=== PATIENT | male | born 1960 | race Native Hawaiian/Other Pacific Islander ===

== ENCOUNTER 2016-09-10 08:40 | Outpatient (CLI) | payer MEDICAID | END 2016-09-10 08:41 | disposition home or self-care (01) | DX: I10 Essential (primary) hypertension (principal); E78.5 Hyperlipidemia, unspecified; E11.9 Type 2 diabetes mellitus without complications; Z12.11 Encounter for screening for malignant neoplasm of colon ==

== ENCOUNTER 2017-04-06 11:28 | Emergency (ER) | payer OTHER, MEDICAID ==
[2017-04-06 11:35] VITALS: BP 128/79
--- NOTE | 2017-04-06 11:59 | ED Physician Documentation ---
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 Pain with walking and leg flexion at knee.) Where injury occurred: Work Timing - onset: Today Timing - duration: Hours Timing - details: Abrupt onset, Still present Improved by: Rest Worsened by: Moving, Palpating, Other (walking) Associated symptoms: No: Weakness, Numbness, Swelling Similar symptoms before: Has not had sx before Recently seen: Not recently seen Review of Systems Skin: denies: Abrasion (s), Laceration (s) Neurologic: denies: Focal weakness, Numbness PD PAST MEDICAL HISTORY - Past Medical History Cardiovascular: Hypertension, High cholesterol Endocrine/Autoimmune: Type 2 diabetes - Past Surgical History Past Surgical History: Yes - Present Medications Home Medications: Ambulatory Orders Medication Instructions Recorded Confirmed Atenolol [Tenormin] 25 mg PO DAILY 11/08/12 04/06/17 Simvastatin 40 mg PO DAILY #30 tablet 11/08/12 04/06/17 metFORMIN [Glucophage] 0 mg ORAL DAILY 01/21/15 04/06/17 Aspirin 81 mg PO DAILY 02/25/16 04/06/17 HYDROcod/ACETAM 5/325 [[place] 5/325] 1 tab PO Q6H PRN #15 tablet 04/06/17 Methocarbamol [Robaxin] 500 mg PO Q6H PRN #25 tablet 04/06/17 Naproxen [Naprosyn] 500 mg PO BID #20 tablet 04/06/17 - Allergies Allergies/Adverse Reactions: Allergies Allergy/AdvReac Type Severity Reaction Status Date / Time No Known Drug Allergies Allergy Verified 04/06/17 11:35 - Social History Does the pt smoke?: No Smoking Status: Never smoker Does the pt drink ETOH?: No Does the pt have substance abuse?: No - Immunizations Immunizations are current?: Yes PD ED PE NORMAL - Vitals Vital signs reviewed: Yes - General General: Alert and oriented X 3, No acute distress, Well developed/nourished - Derm Derm: Normal color, Warm and dry - Extremities Extremities: Other (right posterior medial thigh above the level of the hamstring tendon itself, is tender in biceps femoris area. No soft spots of muscle. He is able to flex against resistance but hurts in posterior medial thigh. ) - Neuro Neuro: Alert and oriented X 3, No motor deficit, No sensory deficit Results - Vitals Vitals: Vital Signs - 24 hr 04/06/17 11:30 Temperature 35.9 C L Heart Rate 79 Respiratory 16 Rate Blood Pressure 128/79 O2 Saturation 99 Oxygen O2 Source Room air PD MEDICAL DECISION MAKING - ED course Complexity details: considered differential (has muscle pain and limping with tenderness medial posterior thigh, but higher than tendon segment. Seems in Biceps femoris region. Hamstring tendon at popliteal area firm and not tender. ) , d/w patient Departure - Departure Disposition: 01 Home, Self Care Clinical Impression: Hamstring muscle strain Qualifiers: Encounter type: initial encounter Laterality: right Qualified Code(s): S76.311A - Strain of muscle, fascia and tendon of the posterior muscle group at thigh level, right thigh, initial encounter Pain in extremity Qualifiers: Extremity pain location: thigh Laterality: right Qualified Code(s): M79.651 - Pain in right thigh Condition: Stable Record reviewed to determine appropriate education?: Yes Instructions: ED Strain Muscle Ext Follow-Up: Laura Jacobo ARNP [Primary Care Provider] - Emilie Rubio MD [Provider Admit Priv/Credential] - Prescriptions: HYDROcod/ACETAM 5/325 [[place] 5/325] 1 tab PO Q6H PRN #15 tablet PRN Reason: Pain Methocarbamol [Robaxin] 500 mg PO Q6H PRN #25 tablet PRN Reason: Spasms Naproxen [Naprosyn] 500 mg PO BID #20 tablet Comments: Limited walking and standing and work for several days up to a week. Over this will improve during that timeframe though it will possibly take 2 or 3 weeks to fully heal up. Use crutches if needed for partial weightbearing for comfort. Use an anti-inflammatory such as naproxen or ibuprofen twice daily for the next 7-10 days. Methocarbamol muscle relaxant if needed for spasms and stiffness. Add Tylenol or hydrocodone if needed for pain. Follow-up with your primary care or perhaps more appropriately orthopedics if not improved reasonably well in the next week. Forms: Activity restrictions Discharge Date/Time: 04/06/17 12:57
[2017-04-06] MEDS ORDERED: METHOCARBAMOL 500 MG TABLET PO STA (12:34)
[2017-04-06] MEDS ORDERED: IBUPROFEN 600 MG TABLET PO STA (12:34)
[2017-04-06] MEDS ORDERED: HYDROcod/ACETAM 5/325 MG TABLET PO STA (12:34)
[2017-04-06] MEDS ORDERED: IBUPROFEN 600 MG TABLET PO ONE (12:46)
[2017-04-06] MEDS ORDERED: HYDROcod/ACETAM 5/325 MG TABLET ONE (12:46)
[2017-04-06] MEDS ORDERED: METHOCARBAMOL 500 MG TABLET PO ONE (12:47)
== END 2017-04-06 12:57 | disposition home or self-care (01) ==
LOC: ED 11:28
DX: S76.311A Strain of muscle, fascia and tendon of the posterior muscle group at thigh level, right thigh, initial encounter (principal); X50.9XXA Other and unspecified overexertion or strenuous movements or postures, initial encounter; Y99.0 Civilian activity done for income or pay; M79.651 Pain in right thigh; I10 Essential (primary) hypertension; E11.8 Type 2 diabetes mellitus with unspecified complications; E78.00 Pure hypercholesterolemia, unspecified; Z79.84 Long term (current) use of oral hypoglycemic drugs; Z79.82 Long term (current) use of aspirin
CPT/HCPCS: 1040M; 99283; A9270

== ENCOUNTER 2017-04-08 13:03 | Emergency (ER) | payer MEDICAID ==
[2017-04-08 13:23] VITALS: BP 158/83
--- NOTE | 2017-04-08 14:45 | ED Physician Documentation ---
PD HPI LOWER EXT INJURY - Stated complaint Stated Complaint: R LEG PX - Chief complaint Chief Complaint: General - History obtained from History obtained from: Patient - History of Present Illness PD HPI LOW EXT INJURY LOCATION: Right, Thigh Type of injury: Twist (see prior ED chart) Where injury occurred: Work Timing - details: Abrupt onset Recently seen: Emergency Dept (he had hamstring injury few days ago and is improving pain with walking but noted significant bruising posterolateral thigh today. I had warned him about that at prior visit but he did not recall that and was cocnerned about the bruising.) Review of Systems Constitutional: denies: Fever, Chills GI: denies: Nausea, Vomiting Skin: denies: Abrasion (s), Laceration (s) Neurologic: denies: Focal weakness, Numbness PD PAST MEDICAL HISTORY - Past Medical History Cardiovascular: Hypertension, High cholesterol Endocrine/Autoimmune: Type 2 diabetes - Past Surgical History Past Surgical History: Yes - Present Medications Home Medications: Ambulatory Orders Medication Instructions Recorded Confirmed Atenolol [Tenormin] 25 mg PO DAILY 11/08/12 04/08/17 metFORMIN [Glucophage] 0 mg ORAL DAILY 01/21/15 04/08/17 Aspirin 81 mg PO DAILY 02/25/16 04/08/17 HYDROcod/ACETAM 5/325 [[place] 5/325] 1 tab PO Q6H PRN #15 tablet 04/06/17 Methocarbamol [Robaxin] 500 mg PO Q6H PRN #25 tablet 04/06/17 04/08/17 - Allergies Allergies/Adverse Reactions: Allergies Allergy/AdvReac Type Severity Reaction Status Date / Time No Known Drug Allergies Allergy Verified 04/08/17 13:23 - Social History Does the pt smoke?: No Smoking Status: Never smoker Does the pt drink ETOH?: No Does the pt have substance abuse?: No - Immunizations Immunizations are current?: Yes PD ED PE NORMAL - Vitals Vital signs reviewed: Yes - General General: Alert and oriented X 3, No acute distress, Well developed/nourished - Derm Derm: Warm and dry, Other (right posterolateral thigh with bruising deep purple , without tenderness of the bruise area. tub tender in muscle injury area. ) - Neuro Neuro: Alert and oriented X 3, No motor deficit, No sensory deficit Results - Vitals Vitals: Oxygen O2 Source Room air PD MEDICAL DECISION MAKING - ED course Complexity details: considered differential (he had had muscle strain of hamstring few days prior and now has bruising. This is just blood coming to surface. ), d/w patient Departure - Departure Disposition: 01 Home, Self Care Clinical Impression: Hamstring muscle strain Qualifiers: Encounter type: subsequent encounter Laterality: right Qualified Code(s): S76.311D - Strain of muscle, fascia and tendon of the posterior muscle group at thigh level, right thigh, subsequent encounter Traumatic ecchymosis of right thigh Qualifiers: Encounter type: subsequent encounter Qualified Code(s): S70.11XD - Contusion of right thigh, subsequent encounter Condition: Stable Record reviewed to determine appropriate education?: Yes Comments: The bruising of the back of the thigh is natural consequence of the torn muscle from the hamstring area. It is blood just coming to the surface with time. He may also develop some down behind the knee and the top of the calf as the blood tracks down the tendon sheath. It will be a bit tender and sore in the area but it is would slowly resolve over a couple weeks. I will turn from the purple to green to yellow and slowly fade away. Otherwise from the muscle tear itself, continue light activity as previously directed and progress that as able based on symptoms. Discharge Date/Time: 04/08/17 14:49
== END 2017-04-08 14:49 | disposition home or self-care (01) ==
LOC: ED 13:03
DX: S76.311D Strain of muscle, fascia and tendon of the posterior muscle group at thigh level, right thigh, subsequent encounter (principal); S70.11XD Contusion of right thigh, subsequent encounter; X50.9XXD Other and unspecified overexertion or strenuous movements or postures, subsequent encounter; I10 Essential (primary) hypertension; E78.00 Pure hypercholesterolemia, unspecified; E11.8 Type 2 diabetes mellitus with unspecified complications; Z79.84 Long term (current) use of oral hypoglycemic drugs; Z79.82 Long term (current) use of aspirin
CPT/HCPCS: 99282

== ENCOUNTER 2017-05-29 07:57 | Outpatient (CLI) | payer MEDICAID ==
[2017-05-29 08:41] LABS: CREATININE 1.6 mg/dL (0.6-1.2)
[2017-05-29 08:52] LABS: HB2 TOTAL 16.3 g/dL; HEMOGLOBIN A1C 0.76 g/dL; HEMOGLOBIN A1C % 6.4 % (4.6-6.2)
== END 2017-05-29 07:58 | disposition home or self-care (01) ==
LOC: LAB 07:57
PROVIDERS: ATTEND Nurse Practitioner Family
DX: E11.9 Type 2 diabetes mellitus without complications (principal)
CPT/HCPCS: 80048; 83036

== ENCOUNTER 2018-05-15 06:31 | Outpatient (CLI) | payer MEDICAID ==
[2018-05-15 07:03] LABS: BASOPHILS # (AUTO) 0.1 10^3/uL (0.0-0.1); BASOPHILS % (AUTO) 0.9 %; EOSINOPHILS # (AUTO) 0.2 10^3/uL (0.0-0.7); EOSINOPHILS % (AUTO) 3.6 %; HGB - HEMOGLOBIN 14.9 g/dL (14.0-18.0); LYMPHOCYTES # (AUTO) 1.7 10^3/uL (1.5-3.5); LYMPHOCYTES % (AUTO) 28.2 %; MEAN CORPUSCULAR HEMOGLOBIN 30.7 pg (27.0-31.0); MEAN CORPUSCULAR HGB CONC 33.7 g/dL (32.0-36.0); MEAN CORPUSCULAR VOLUME 91.2 fL (80.0-94.0); MONOCYTES # (AUTO) 0.5 10^3/uL (0.0-1.0); MONOCYTES % (AUTO) 8.3 %; NEUTROPHILS # (AUTO) 3.6 10^3/uL (1.5-6.6); PLT - PLATELET COUNT 338 10^3/uL (130-450); RED BLOOD COUNT 4.87 10^6/uL (4.70-6.10); RED CELL DISTRIBUTION WIDTH 13.3 % (12.0-15.0); WHITE BLOOD COUNT 6.1 x10^3/uL (4.8-10.8)
[2018-05-15 07:09] LABS: ALBUMIN 4.3 g/dL (3.2-5.5); ALBUMIN/GLOBULIN RATIO 1.3 (1.0-2.2); ALKALINE PHOSPHATASE 78 IU/L (42-121); ALT ALANINE AMINOTRANSFERASE 25 IU/L (10-60); AST ASPARTATE AMINOTRANSFERASE 23 IU/L (10-42); BILIRUBIN,TOTAL 0.5 mg/dL (0.2-1.0); BUN - BLOOD UREA NITROGEN 33 mg/dL (6-20); CALCIUM 8.7 mg/dL (8.5-10.3); CARBON DIOXIDE - CO2 23 mmol/L (21-32); CHLORIDE 108 mmol/L (101-111); CHOL/HDL RATIO 7.1 (<5.0); CHOLESTEROL 248 mg/dL; CREATININE 1.7 mg/dL (0.6-1.2); GFR - MDRD 42 (>89); GLUCOSE 207 mg/dL (70-100); HDL CHOLESTEROL 35 mg/dL; SODIUM 138 mmol/L (135-145); TOTAL PROTEIN 7.7 g/dL (6.7-8.2)
[2018-05-15 07:27] LABS: LDL CHOLESTEROL,DIRECT 117 mg/dL; LDLD/HDL RATIO 3.3 (<3.6)
[2018-05-15 07:33] LABS: HB2 TOTAL 16.1 g/dL; HEMOGLOBIN A1C 0.79 g/dL; HEMOGLOBIN A1C % 6.6 % (4.6-6.2)
== END 2018-05-15 06:32 | disposition home or self-care (01) ==
LOC: LAB 06:31
PROVIDERS: ATTEND Nurse Practitioner Family
DX: I10 Essential (primary) hypertension (principal); E11.9 Type 2 diabetes mellitus without complications; E78.5 Hyperlipidemia, unspecified
CPT/HCPCS: 36415; 80050; 80061; 82043; 83036; 83721

== ENCOUNTER 2018-10-16 10:01 | Emergency (ER) | payer MEDICAID ==
[2018-10-16] MEDS ORDERED: cefTRIAXone 1 GM VIAL IM STA (11:27)
[2018-10-16] MEDS ORDERED: LIDOCAINE 1% 2 ML VIAL MC ONE (11:27)
--- NOTE | 2018-10-16 11:31 | ED Physician Documentation ---
History of Present Illness - Stated complaint Stated Complaint: L HAND INJ - Chief complaint Chief Complaint: General - History obtained from History obtained from: Patient - History of Present Illness Timing: How many days ago (3) - Additonal information Additional information: 57-year-old diabetic male carrying some firewood into his house on Tuesday night and later noticed that he had some swelling to his left middle finger. He also noticed there was 2 other bite morales to the right middle finger and the left thumb. He thought these would improve and the bites on his right hand resolved with only tiny eschars left and on the left hand he is developed swelling redness and a lymphangitic streak. He has not had fever he has not had nausea or vomiting. Review of Systems Constitutional: denies: Fever Eyes: denies: Decreased vision Ears: denies: Ear pain Nose: denies: Rhinorrhea / runny nose, Congestion Throat: denies: Sore throat Cardiac: denies: Chest pain / pressure Respiratory: denies: Dyspnea, Cough GI: denies: Nausea, Vomiting PD PAST MEDICAL HISTORY - Past Medical History Past Medical History: Yes Cardiovascular: Hypertension, High cholesterol Endocrine/Autoimmune: Type 2 diabetes - Past Surgical History Past Surgical History: Yes - Present Medications Home Medications: Ambulatory Orders Medication Instructions Recorded Confirmed Atenolol [Tenormin] 25 mg PO DAILY 11/08/12 04/08/17 metFORMIN [Glucophage] 0 mg ORAL DAILY 01/21/15 04/08/17 Aspirin 81 mg PO DAILY 02/25/16 04/08/17 HYDROcod/ACETAM 5/325 [[place] 5/325] 1 tab PO Q6H PRN #15 tablet 04/06/17 Methocarbamol [Robaxin] 500 mg PO Q6H PRN #25 tablet 04/06/17 04/08/17 Sulfamethoxazole/Trimethoprim 1 each PO BID #14 tablet 10/16/18 [Sulfamethoxazole-Tmp Ds Tablet] - Allergies Allergies/Adverse Reactions: Allergies Allergy/AdvReac Type Severity Reaction Status Date / Time No Known Drug Allergies Allergy Verified 10/16/18 10:08 - Social History Does the pt smoke?: No Smoking Status: Never smoker Does the pt drink ETOH?: No Does the pt have substance abuse?: No - Immunizations Immunizations are current?: Yes - POLST Patient has POLST: No PD ED PE NORMAL - Vitals Vital signs reviewed: Yes (hypertensive ) - General General: Alert and oriented X 3, No acute distress, Well developed/nourished - HEENT HEENT: Atraumatic, PERRL - Neck Neck: Supple, no meningeal sign, No bony TTP - Respiratory Respiratory: No respiratory distress - Derm Derm: Normal color, Warm and dry, No rash - Extremities Extremities: No deformity, Other (There are 2 small areas 3mm round over the right middle finger proximally and the right thumb ulnar surface. There is a similar markt to the left middle finger but there is marked swelling and erythema to the left middle finger with lymphangitic streaking over the dorsum of the left hand extending to the distal forearm. The finger is soft and without fluctuance or pointing ) - Neuro Neuro: Alert and oriented X 3, sample checker 2-12 intact, No motor deficit, No sensory deficit, Normal speech Eye Opening: Spontaneous Motor: Obeys Commands Verbal: Oriented GCS Score: 15 - Psych Psych: Normal mood, Normal affect Results - Vitals Vitals: Vital Signs - 24 hr 10/16/18 10:03 Temperature 36.5 C Heart Rate 85 Respiratory 14 Rate Blood Pressure 166/105 H O2 Saturation 100 Oxygen O2 Source Room air PD MEDICAL DECISION MAKING - ED course Complexity details: considered differential, d/w patient ED course: 57-year-old male diabetic has developed a swelling to the left middle finger with lymphangitic streaking without obvious focal abscess. He is administered Rocephin 1 g IM and we will place him on some Sept. I have discussed with the patient reason to return to the emergency department specifically for pointing, pain or progression. Departure - Departure Disposition: 01 Home, Self Care Clinical Impression: Cellulitis and abscess of finger, unspecified Condition: Stable Instructions: ED Infec Skin Cellulitis Follow-Up: [facility] [Provider Group] Prescriptions: Sulfamethoxazole/Trimethoprim [Sulfamethoxazole-Tmp Ds Tablet] 1 each PO BID #14 tablet
[2018-10-16 12:18] VITALS: BP 155/98
== END 2018-10-16 12:18 | disposition home or self-care (01) ==
LOC: ED 10:01
DX: L03.012 Cellulitis of left finger (principal); L02.512 Cutaneous abscess of left hand; E11.9 Type 2 diabetes mellitus without complications; Z79.84 Long term (current) use of oral hypoglycemic drugs; I10 Essential (primary) hypertension; Z79.82 Long term (current) use of aspirin
CPT/HCPCS: 96372; 99283

== ENCOUNTER 2020-10-31 06:57 | Outpatient (CLI) | payer MEDICAID ==
[2020-10-31 07:31] LABS: BASOPHILS # (AUTO) 0.1 10^3/uL (0.0-0.1); BASOPHILS % (AUTO) 0.8 %; EOSINOPHILS # (AUTO) 0.2 10^3/uL (0.0-0.7); EOSINOPHILS % (AUTO) 3.4 %; HCT - HEMATOCRIT 42.5 % (42.0-52.0); HGB - HEMOGLOBIN 14.3 g/dL (14.0-18.0); LYMPHOCYTES # (AUTO) 1.8 10^3/uL (1.5-3.5); MEAN CORPUSCULAR HEMOGLOBIN 30.9 pg (27.0-31.0); MEAN CORPUSCULAR HGB CONC 33.6 g/dL (32.0-36.0); MEAN CORPUSCULAR VOLUME 91.8 fL (80.0-94.0); MEAN PLATELET VOLUME 8.7 fL (7.4-11.4); MONOCYTES # (AUTO) 0.4 10^3/uL (0.0-1.0); MONOCYTES % (AUTO) 6.9 %; NEUTROPHILS # (AUTO) 3.5 10^3/uL (1.5-6.6); NEUTROPHILS % (AUTO) 58.6 %; PLT - PLATELET COUNT 316 10^3/uL (130-450); RED BLOOD COUNT 4.63 10^6/uL (4.70-6.10); RED CELL DISTRIBUTION WIDTH 12.5 % (12.0-15.0)
[2020-10-31 07:48] LABS: BUN - BLOOD UREA NITROGEN 30 mg/dL (6-20); CARBON DIOXIDE - CO2 22 mmol/L (21-32); CHLORIDE 109 mmol/L (101-111); CHOL/HDL RATIO 5.7 (<5.0); CHOLESTEROL 221 mg/dL; GFR - MDRD 34 (>89); GLUCOSE 199 mg/dL (70-100); HDL CHOLESTEROL 39 mg/dL; LDL CHOLESTEROL,CALCULATED 144 mg/dL; LDL/HDL RATIO 3.7 (<3.6); POTASSIUM 4.2 mmol/L (3.5-5.0); SODIUM 138 mmol/L (135-145); TRIGLYCERIDES 192 mg/dL; VLDL CHOLESTEROL 38 mg/dL
[2020-10-31 08:01] LABS: THYROID STIMULATING HORMONE 3.87 uIU/mL (0.34-5.60)
[2020-10-31 08:18] LABS: CREATININE,URINE 124.5 mg/dL; MICROALBUM/CREATININE RATIO,UR 773.5 ug/mg (<30.0); MICROALBUMIN,URINE 96.3 mg/dL (0-300.0)
[2020-10-31 12:01] LABS: ESTIMATED AVERAGE GLUCOSE 163 mg/dL (70-100); HEMOGLOBIN A1c% 7.3 % (4.27-6.07)
== END 2020-10-31 06:58 | disposition home or self-care (01) ==
LOC: LAB 06:57
PROVIDERS: ATTEND Physician Assistant
DX: E78.5 Hyperlipidemia, unspecified (principal); I10 Essential (primary) hypertension; E11.9 Type 2 diabetes mellitus without complications; Z12.5 Encounter for screening for malignant neoplasm of prostate
CPT/HCPCS: 36415; 80048; 80061; 82043; 82570; 83036; 83721; 84153; 84443; 85025

== ENCOUNTER 2021-09-25 16:49 | Outpatient (CLI) | payer MEDICAID ==
[2021-09-25 17:07] LABS: BASOPHILS # (AUTO) 0.1 10^3/uL (0.0-0.1); BASOPHILS % (AUTO) 0.6 %; EOSINOPHILS # (AUTO) 0.2 10^3/uL (0.0-0.7); EOSINOPHILS % (AUTO) 2.1 %; HCT - HEMATOCRIT 40.6 % (42.0-52.0); HGB - HEMOGLOBIN 13.1 g/dL (14.0-18.0); LYMPHOCYTES # (AUTO) 1.9 10^3/uL (1.5-3.5); LYMPHOCYTES % (AUTO) 20.4 %; MEAN CORPUSCULAR HEMOGLOBIN 30.3 pg (27.0-31.0); MEAN CORPUSCULAR HGB CONC 32.3 g/dL (32.0-36.0); MEAN CORPUSCULAR VOLUME 93.8 fL (80.0-94.0); MEAN PLATELET VOLUME 8.3 fL (7.4-11.4); MONOCYTES # (AUTO) 0.8 10^3/uL (0.0-1.0); MONOCYTES % (AUTO) 8.4 %; NEUTROPHILS # (AUTO) 6.5 10^3/uL (1.5-6.6); NEUTROPHILS % (AUTO) 68.2 %; PLT - PLATELET COUNT 318 10^3/uL (130-450); RED BLOOD COUNT 4.33 10^6/uL (4.70-6.10); WHITE BLOOD COUNT 9.5 x10^3/uL (4.8-10.8)
[2021-09-25 17:20] LABS: ALBUMIN 4.2 g/dL (3.2-5.5); CALCIUM 8.9 mg/dL (8.5-10.3); CREATININE 2.7 mg/dL (0.6-1.2); PHOSPHORUS 4.2 mg/dL (2.5-4.6); POTASSIUM 4.6 mmol/L (3.5-5.0)
[2021-09-25 17:35] LABS: BILIRUBIN,URINE NEGATIVE (NEGATIVE); GLUCOSE, URINE (UA) NEGATIVE (NEGATIVE); KETONES,URINE (UA) NEGATIVE (NEGATIVE); LEUKOCYTE ESTERASE, URINE NEGATIVE (NEGATIVE); NITRITE,URINE NEGATIVE (NEGATIVE); OCCULT BLOOD,URINE TRACE-INTA (NEGATIVE); PH,URINE 5.5 PH (5.0-7.5); PROTEIN,URINE 100 mg/dL (NEGATIVE); UROBILINOGEN,URINE 0.2 (NORMAL) E.U./dL (NORMAL)
[2021-09-25 17:36] LABS: CLARITY,URINE HAZY (CLEAR)
[2021-09-25 17:56] LABS: BACTERIA,URINE None Seen /HPF (None Seen); RBC,URINE 0-5 /HPF (0-5); SQUAMOUS EPITHELIAL CELL,UR NONE SEEN (<= Few); WBC,URINE 0-3 /HPF (0-3)
[2021-09-25 17:59] LABS: CREATININE,URINE 158.3 mg/dL; MICROALBUM/CREATININE RATIO,UR 471.9 ug/mg (<30.0); MICROALBUMIN,URINE 74.7 mg/dL (0-300.0); PROTEIN/CREATININE RATIO,URINE 0.6 (<=0.2)
== END 2021-09-25 16:50 | disposition home or self-care (01) ==
LOC: LAB 16:49
PROVIDERS: ATTEND Internal Medicine Nephrology
DX: N18.32 Chronic kidney disease, stage 3b (principal); R80.9 Proteinuria, unspecified
CPT/HCPCS: 36415; 80069; 81001; 82043; 82570; 84156; 85025; 87086

== ENCOUNTER 2021-10-24 08:38 | Outpatient (CLI) | payer MEDICAID ==
[2021-10-24 08:58] LABS: HCT - HEMATOCRIT 43.4 % (42.0-52.0); HGB - HEMOGLOBIN 14.2 g/dL (14.0-18.0)
[2021-10-24 09:03] LABS: BILIRUBIN,URINE NEGATIVE (NEGATIVE); GLUCOSE, URINE (UA) 100 mg/dL (NEGATIVE); KETONES,URINE (UA) NEGATIVE (NEGATIVE); LEUKOCYTE ESTERASE, URINE NEGATIVE (NEGATIVE); NITRITE,URINE NEGATIVE (NEGATIVE); OCCULT BLOOD,URINE TRACE-INTA (NEGATIVE); PROTEIN,URINE 100 mg/dL (NEGATIVE); UROBILINOGEN,URINE 0.2 (NORMAL) E.U./dL (NORMAL)
[2021-10-24 09:11] LABS: ALBUMIN 4.1 g/dL (3.2-5.5); CALCIUM 9.3 mg/dL (8.5-10.3); PHOSPHORUS 3.2 mg/dL (2.5-4.6); POTASSIUM 4.6 mmol/L (3.5-5.0)
[2021-10-24 09:12] LABS: CLARITY,URINE CLEAR (CLEAR); RBC,URINE 0-5 /HPF (0-5); WBC,URINE 0-3 /HPF (0-3)
[2021-10-24 09:13] LABS: BACTERIA,URINE None Seen /HPF (None Seen); SQUAMOUS EPITHELIAL CELL,UR NONE SEEN (<= Few)
[2021-10-24 09:16] LABS: CREATININE,URINE 91.1 mg/dL; MICROALBUM/CREATININE RATIO,UR 354.6 ug/mg (<30.0); MICROALBUMIN,URINE 32.3 mg/dL (0-300.0); PROTEIN/CREATININE RATIO,URINE 1.1 (<=0.2)
== END 2021-10-24 08:39 | disposition home or self-care (01) ==
LOC: LAB 08:38
PROVIDERS: ATTEND Internal Medicine Nephrology
DX: E11.22 Type 2 diabetes mellitus with diabetic chronic kidney disease (principal); N18.4 Chronic kidney disease, stage 4 (severe); R80.9 Proteinuria, unspecified
CPT/HCPCS: 36415; 80069; 81001; 82043; 82306; 82570; 83970; 84156; 85014; 85018; 87086

== ENCOUNTER 2022-01-16 08:18 | Outpatient (CLI) | payer MEDICAID ==
[2022-01-16 09:02] LABS: HCT - HEMATOCRIT 39.1 % (42.0-52.0); HGB - HEMOGLOBIN 12.7 g/dL (14.0-18.0)
[2022-01-16 09:12] LABS: CALCIUM 9.3 mg/dL (8.5-10.3); CREATININE 2.2 mg/dL (0.6-1.2); POTASSIUM 5.3 mmol/L (3.5-5.0)
[2022-01-16 09:49] LABS: CREATININE,URINE 110.5 mg/dL; MICROALBUM/CREATININE RATIO,UR 385.5 ug/mg (<30.0); MICROALBUMIN,URINE 42.6 mg/dL (0-300.0)
[2022-01-16 10:34] LABS: ESTIMATED AVERAGE GLUCOSE 146 mg/dL (70-100); HEMOGLOBIN A1c% 6.7 % (4.27-6.07)
== END 2022-01-16 08:19 | disposition home or self-care (01) ==
LOC: LAB 08:18
PROVIDERS: ATTEND Internal Medicine Nephrology
DX: I12.9 Hypertensive chronic kidney disease with stage 1 through stage 4 chronic kidney disease, or unspecified chronic kidney disease (principal); E11.22 Type 2 diabetes mellitus with diabetic chronic kidney disease; N18.4 Chronic kidney disease, stage 4 (severe); R80.9 Proteinuria, unspecified
CPT/HCPCS: 36415; 80048; 82043; 82570; 83036; 85014; 85018

== ENCOUNTER 2022-07-23 09:39 | Outpatient (CLI) | payer MEDICAID ==
[2022-07-23 09:58] LABS: BASOPHILS # (AUTO) 0.1 10^3/uL (0.0-0.1); BASOPHILS % (AUTO) 0.7 %; EOSINOPHILS # (AUTO) 0.2 10^3/uL (0.0-0.7); EOSINOPHILS % (AUTO) 2.6 %; HCT - HEMATOCRIT 40.3 % (42.0-52.0); HGB - HEMOGLOBIN 12.4 g/dL (14.0-18.0); LYMPHOCYTES # (AUTO) 1.1 10^3/uL (1.5-3.5); LYMPHOCYTES % (AUTO) 12.9 %; MEAN CORPUSCULAR HEMOGLOBIN 29.7 pg (27.0-31.0); MEAN CORPUSCULAR HGB CONC 30.8 g/dL (32.0-36.0); MEAN CORPUSCULAR VOLUME 96.4 fL (80.0-94.0); MEAN PLATELET VOLUME 8.1 fL (7.4-11.4); MONOCYTES % (AUTO) 11.6 %; NEUTROPHILS # (AUTO) 6.3 10^3/uL (1.5-6.6); PLT - PLATELET COUNT 391 10^3/uL (130-450); RED BLOOD COUNT 4.18 10^6/uL (4.70-6.10); RED CELL DISTRIBUTION WIDTH 12.5 % (12.0-15.0); WHITE BLOOD COUNT 8.8 x10^3/uL (4.8-10.8)
[2022-07-23 10:17] LABS: CALCIUM 8.8 mg/dL (8.5-10.3); CREATININE 2.4 mg/dL (0.6-1.2); POTASSIUM 4.8 mmol/L (3.5-5.0)
[2022-07-23 10:20] LABS: CREATININE,URINE 97.6 mg/dL; MICROALBUM/CREATININE RATIO,UR 390.4 ug/mg (<30.0); MICROALBUMIN,URINE 38.1 mg/dL (0-300.0); PROTEIN/CREATININE RATIO,URINE 0.6 (<=0.2)
== END 2022-07-23 09:40 | disposition home or self-care (01) ==
LOC: LAB 09:39
PROVIDERS: ATTEND Internal Medicine Nephrology
DX: N18.4 Chronic kidney disease, stage 4 (severe) (principal)
CPT/HCPCS: 36415; 80048; 82043; 82306; 82570; 83970; 84156; 85025

== ENCOUNTER 2022-10-01 10:45 | Outpatient (CLI) | payer MEDICAID ==
--- NOTE | 2022-10-01 15:39 | XRAY Report ---
PROCEDURE: Lumbar Spine 2 View INDICATIONS: ACUTE LOW BACK PAIN TECHNIQUE: 3 views of the lumbar spine were acquired. COMPARISON: None. FINDINGS: Bones: 5 [id number] vertebrae are present. There is trace retrolisthesis of L3 on L4, L5 on S1 . Moderate to severe disc and foraminal narrowing at L5-S1 with mild to moderate disc space throughou t the remainder of the lumbar spine. Anterior osteophytes are present most severe at L4-5. No vertebr al body compression fractures. No suspicious bony lesions. Soft tissues: Overlying bowel gas pattern is normal. No suspicious soft tissue calcifications. IMPRESSION: Degenerative changes most severe at L5-S1. Reviewed by: Cristal Pat MD on 10/01/2022 3:38 PM PDT Approved by: Cristal Pat MD on 10/01/2022 3:38 PM PDT Station ID: [id number]
== END 2022-10-01 11:00 | disposition home or self-care (01) ==
LOC: DI.N 10:45
PROVIDERS: ATTEND Family Medicine
DX: M47.817 Spondylosis without myelopathy or radiculopathy, lumbosacral region (principal)

== ENCOUNTER 2023-07-19 16:24 | Outpatient (CLI) | payer MEDICAID ==
[2023-07-19 16:40] LABS: HCT - HEMATOCRIT 41.7 % (42.0-52.0); HGB - HEMOGLOBIN 12.8 g/dL (14.0-18.0)
[2023-07-19 17:06] LABS: ALBUMIN 4.3 g/dL (3.2-5.5); CALCIUM 9.4 mg/dL (8.5-10.3); CREATININE 2.5 mg/dL (0.6-1.3); PHOSPHORUS 3.6 mg/dL (2.5-5.0); POTASSIUM 4.6 mmol/L (3.5-4.5)
[2023-07-19 17:07] LABS: CREATININE,URINE 123.4 mg/dL; PROTEIN/CREATININE RATIO,URINE 0.7 (<=0.2)
[2023-07-19 17:18] LABS: MICROALBUMIN,URINE 57.5 mg/dL
[2023-07-19 18:08] LABS: FERRITIN 404.2 ng/mL (23.9-336.2)
== END 2023-07-19 16:25 | disposition home or self-care (01) ==
LOC: LAB 16:24
PROVIDERS: ATTEND Internal Medicine Nephrology
DX: E11.22 Type 2 diabetes mellitus with diabetic chronic kidney disease (principal); N18.4 Chronic kidney disease, stage 4 (severe); R80.9 Proteinuria, unspecified; N18.32 Chronic kidney disease, stage 3b; I12.9 Hypertensive chronic kidney disease with stage 1 through stage 4 chronic kidney disease, or unspecified chronic kidney disease
CPT/HCPCS: 36415; 80069; 82043; 82306; 82570; 82728; 83540; 83970; 84156; 84466; 85014; 85018

== ENCOUNTER 2023-11-21 09:00 | Outpatient (CLI) | payer MEDICAID ==
[2023-11-21 11:54] LABS: BASOPHILS # (AUTO) 0.1 10^3/uL (0.0-0.1); EOSINOPHILS # (AUTO) 0.2 10^3/uL (0.0-0.7); EOSINOPHILS % (AUTO) 3.9 %; HCT - HEMATOCRIT 41.5 % (42.0-52.0); HGB - HEMOGLOBIN 13.3 g/dL (14.0-18.0); LYMPHOCYTES # (AUTO) 1.2 10^3/uL (1.5-3.5); LYMPHOCYTES % (AUTO) 25.1 %; MEAN CORPUSCULAR HEMOGLOBIN 30.6 pg (27.0-31.0); MEAN CORPUSCULAR VOLUME 95.4 fL (80.0-94.0); MEAN PLATELET VOLUME 8.7 fL (7.4-11.4); MONOCYTES # (AUTO) 0.4 10^3/uL (0.0-1.0); MONOCYTES % (AUTO) 7.4 %; PLT - PLATELET COUNT 329 10^3/uL (130-450); RED BLOOD COUNT 4.35 10^6/uL (4.70-6.10); WHITE BLOOD COUNT 4.9 x10^3/uL (4.8-10.8)
[2023-11-21 12:26] LABS: ALBUMIN 4.5 g/dL (3.2-5.5); ALBUMIN/GLOBULIN RATIO 1.3 (1.0-2.2); BILIRUBIN,TOTAL 0.4 mg/dL (0.2-1.0); CALCIUM 9.6 mg/dL (8.5-10.3); CREATININE 2.2 mg/dL (0.6-1.3); POTASSIUM 4.6 mmol/L (3.5-4.5); TOTAL PROTEIN 7.9 g/dL (6.4-8.9)
[2023-11-21 12:33] LABS: ESTIMATED AVERAGE GLUCOSE 128 mg/dL (70-100); HEMOGLOBIN A1c% 6.1 % (4.27-6.07); THYROID STIMULATING HORMONE 3.29 uIU/mL (0.34-5.60)
== END 2023-11-21 09:15 | disposition home or self-care (01) ==
LOC: LAB.N 09:00
PROVIDERS: ATTEND Physician Assistant
DX: R53.83 Other fatigue (principal)
CPT/HCPCS: 36415; 80050; 83036

== ENCOUNTER 2024-01-16 16:25 | Outpatient (CLI) | payer MEDICAID ==
[2024-01-16 16:46] LABS: HCT - HEMATOCRIT 40.2 % (42.0-52.0); HGB - HEMOGLOBIN 12.9 g/dL (14.0-18.0)
[2024-01-16 16:54] LABS: CREATININE 2.3 mg/dL (0.6-1.3); POTASSIUM 4.5 mmol/L (3.5-4.5)
[2024-01-16 16:56] LABS: CREATININE,URINE 66.5 mg/dL; MICROALBUM/CREATININE RATIO,UR 645.1 ug/mg (<30.0); MICROALBUMIN,URINE 42.9 mg/dL; PROTEIN/CREATININE RATIO,URINE 0.9 (<=0.2)
== END 2024-01-16 16:26 | disposition home or self-care (01) ==
LOC: LAB 16:25
PROVIDERS: ATTEND Internal Medicine Nephrology
DX: I12.9 Hypertensive chronic kidney disease with stage 1 through stage 4 chronic kidney disease, or unspecified chronic kidney disease (principal); E11.22 Type 2 diabetes mellitus with diabetic chronic kidney disease; N18.4 Chronic kidney disease, stage 4 (severe); R80.9 Proteinuria, unspecified
CPT/HCPCS: 36415; 80048; 82043; 82570; 84156; 85014; 85018